=== PATIENT | male | born 2000 | race Hispanic/Latino ===

== ENCOUNTER 2020-07-31 13:14 | Emergency (ER) | payer OTHER ==
[2020-07-31] MEDS ORDERED: KETOROLAC TROMETHAMINE 30MG/ML ONE (14:10)
[2020-07-31] MEDS ORDERED: ACETAMINOPHEN-CODEINE 300/30MG TAB ONE (14:11)
== END 2020-07-31 14:35 | disposition home or self-care (01) ==
LOC: EDH 13:14
DX: S90.02XA Contusion of left ankle, initial encounter (principal); Z90.49 Acquired absence of other specified parts of digestive tract; W18.39XA Other fall on same level, initial encounter; Y93.02 Activity, running; Y92.89 Other specified places as the place of occurrence of the external cause; Y99.8 Other external cause status
CPT/HCPCS: 73610; 96372; 99283; J1885